=== PATIENT | female | born 1940 | race Caucasian/White ===

== ENCOUNTER 2016-11-02 20:55 | Observation (INO) | payer MEDICARE, MEDICAID ==
--- NOTE | 2016-11-02 21:27 | C.PDOC ---
History Of Present Illness 76 yo female, no prior hx, presents with back pain. as per pt, has left flank pain x 2 weeks, getting worse, now with nausea/vomiting. pain radiatings down left leg. also c/o left eg pain and swelling. no diarrhea, no fevers, no other complaints. Time Seen by Provider: 11/02/16 21:12 Chief Complaint (Nursing): Back Pain Past Medical History Reviewed: Historical Data, Nursing Documentation, Vital Signs Vital Signs: Last Vital Signs Temp 97.5 F L 11/02/16 21:06 Pulse 71 11/03/16 00:08 Resp 16 11/03/16 00:08 BP 138/71 11/03/16 00:08 Pulse Ox 97 11/03/16 00:08 Surgical History: Cholecystectomy Family History: States: Unknown Family Hx - Social History Hx Tobacco Use: No Hx Alcohol Use: No Hx Substance Use: No - Immunization History Hx Tetanus Toxoid Vaccination: No Hx Influenza Vaccination: No Hx Pneumococcal Vaccination: No Review Of Systems Except As Marked, All Systems Reviewed And Found Negative. Gastrointestinal: Positive for: Other ((+)left flank pain) Physical Exam - Physical Exam Appears: Well, No Acute Distress Skin: Normal Color, Warm, Dry Eye(s): bilateral: Normal Inspection, PERRL, EOMI Nose: Normal Throat: Normal Neck: Normal Cardiovascular: Rhythm Regular Respiratory: Normal Breath Sounds Gastrointestinal/Abdominal: Normal Exam, Soft, Tenderness ((+)left flank pain), No Guarding, No Rebound Back: Normal Inspection Extremity: Normal ROM ED Course And Treatment - Laboratory Results Result Diagrams: 11/02/16 21:39 11/02/16 21:39 O2 Sat by Pulse Oximetry: 98 Medical Decision Making Medical Decision Making: r/o uti/pyelo, renal stone, sciaticia, dvt. - labs imaging pending 1200: pt reassese: mildly elevated dimer. case discussed with mohinder roque obs to r/o dvt Disposition - Disposition Disposition: HOSPITALIZED Disposition Time: 00:04 Condition: STABLE - Clinical Impression Clinical Impression: Leg swelling, Low back pain Decision To Admit - Pt Status Changed To: Hospital Disposition Of: Observation - . Bed Request Type: Regular Admitting Physician: Dario Huff Patient Diagnosis: Leg swelling, Low back pain
[2016-11-02 21:42] LABS: BASO % 0.6 % (0.0-2.0); EOS # 0.3 K/uL (0.0-0.7); HEMATOCRIT 40.8 % (34.0-47.0); LYMPH # 2.7 K/uL (1.0-4.3); LYMPH % 46.8 % (20.0-40.0); MEAN CELL VOLUME 78.7 fL (81.0-99.0); MEAN CORPUSCULAR HEMOGLOBIN 25.5 pg (27.0-31.0); MEAN CORPUSCULAR HGB CONC 32.4 g/dL (33.0-37.0); MEAN PLATELET VOLUME 7.8 fL (7.2-11.7); MONO # 0.6 K/uL (0.0-0.8); MONO % 10.7 % (0.0-10.0); RED CELL DISTRIBUTION WIDTH 14.6 % (11.5-14.5); WHITE BLOOD COUNT 5.9 K/uL (4.8-10.8)
[2016-11-02 21:50] LABS: INR 1.1
[2016-11-02 21:51] LABS: RBC URINE 1 /hpf (0-3); URINE BILIRUBIN NEGATIVE (NEGATIVE); URINE BLOOD NEGATIVE (NEGATIVE); URINE COLOR Yellow (YELLOW); URINE GLUCOSE (UA) NORMAL (Normal); URINE KETONE NEGATIVE (NEGATIVE); URINE LEUKOCYTE ESTERASE TRACE Leu/uL (Negative); URINE PROTEIN NEGATIVE (NEGATIVE); URINE UROBILINOGEN NORMAL mg/dL (0.2-1.0); WBC URINE 6 /hpf (0-5)
[2016-11-02 21:52] LABS: CHLORIDE 106 mmol/L (98-107); POTASSIUM 3.8 mmol/L (3.6-5.2); SODIUM 144 mmol/L (132-148)
[2016-11-02 21:54] LABS: AST/SGOT 46 U/L (14-36); BILIRUBIN,TOTAL 0.4 mg/dL (0.2-1.3); CARBON DIOXIDE 23 mmol/L (22-30); GFR AFRICAN-AMERICAN > 60
[2016-11-02 21:55] LABS: ALB/GLOB RATIO 0.9 (1.0-2.1); ALKALINE PHOSPHATASE 110 U/L (38-126); ALT/SGPT 42 U/L (9-52); BLOOD UREA NITROGEN 12 mg/dL (7-17); CALCIUM 8.9 mg/dl (8.6-10.4); GLUCOSE,RANDOM 83 mg/dL (65-105)
--- NOTE | 2016-11-02 23:14 | CT ---
EXAM: CT Abdomen and Pelvis Without Intravenous Contrast CLINICAL HISTORY: 76 years old, female; Pain; Abdominal pain; Localized; Left; Additional info: Abd pain TECHNIQUE: Axial computed tomography images of the abdomen and pelvis without intravenous contrast. This CT exam was performed using one or more of the following dose reduction techniques: automated exposure control, adjustment of the mA and/or kV according to patient size, and/or use of iterative reconstruction technique. Coronal and sagittal reformatted images were created and reviewed. COMPARISON: No relevant prior studies available. FINDINGS: Lower thorax: Small hiatal hernia. ABDOMEN: Liver: Unremarkable. Gallbladder and bile ducts: Cholecystectomy. No ductal dilation. Pancreas: Unremarkable. No ductal dilation. Spleen: Unremarkable. No splenomegaly. Adrenals: Unremarkable. No mass. Kidneys and ureters: Unremarkable. No obstructing stones. No hydronephrosis. Stomach and bowel: Colonic diverticulosis. Appendix: No findings to suggest acute appendicitis. PELVIS: Bladder: Unremarkable. No stones. Reproductive: 2 CM uterine fundal fibroid. ABDOMEN and PELVIS: Intraperitoneal space: Unremarkable. No free air. No significant fluid collection. Bones/joints: Spinal degenerative changes. No acute fracture. No dislocation. Soft tissues: Unremarkable. Vasculature: Atherosclerotic vascular disease. No abdominal aortic aneurysm. Lymph nodes: Unremarkable. No enlarged lymph nodes. IMPRESSION: 1. Diverticulosis, without evidence of acute diverticulitis. 2. Myomatous uterus. 3. Remainder of findings as above.
[2016-11-03] MEDS ORDERED: Enoxaparin 80 mg Syringe SC STA (00:01)
[2016-11-03] MEDS ORDERED: Enoxaparin 100 mg Syringe SC STA (00:14)
[2016-11-03] MEDS ORDERED: Oxycodone/Acetaminophen 5/325 mg Tab PO PRN (00:15)
[2016-11-03 01:41] VITALS: RESP 20
[2016-11-03] MEDS ORDERED: Enoxaparin 80 mg Syringe SC SCH (10:00)
[2016-11-03] MEDS: Enoxaparin 100 mg Syringe SC SCH (21:43)
--- NOTE | 2016-11-04 01:55 | HP ---
HISTORY OF PRESENT ILLNESS: The patient is now complaining of back pain *------*. The patient came to the ER *------* admission, found to have elevated D-dimer. The patient is *------* on the bed. PHYSICAL EXAMINATION GENERAL: The patient is awake, alert, and oriented. VITAL SIGNS: Temperature 98, pulse 90. HEENT: Within normal limits. NECK: Supple. CHEST: Symmetrical. HEART: Regular. ABDOMEN: *------*. EXTREMITIES: *------*. No edema. Positive for straight leg raising. *------* lumbar radiculopathy and DVT. The patient *------* MRI of lumbar spine. *------*. Dario Huff MD
[2016-11-04] MEDS: Enoxaparin 100 mg Syringe SC SCH ×2 (10:22→21:23)
[2016-11-04 11:57] LABS: EOS # 0.3 K/uL (0.0-0.7); EOS % 6.9 % (0.0-4.0); HEMATOCRIT 40.7 % (34.0-47.0); LYMPH # 2.3 K/uL (1.0-4.3); LYMPH % 51.4 % (20.0-40.0); MEAN CELL VOLUME 79.2 fL (81.0-99.0); MEAN CORPUSCULAR HEMOGLOBIN 25.1 pg (27.0-31.0); MEAN CORPUSCULAR HGB CONC 31.6 g/dL (33.0-37.0); MEAN PLATELET VOLUME 8.7 fL (7.2-11.7); MONO # 0.6 K/uL (0.0-0.8); NRBC % 0.1 % (0.0-2.0); WHITE BLOOD COUNT 4.5 K/uL (4.8-10.8)
[2016-11-04 12:02] LABS: INR 1.1
[2016-11-04 12:19] LABS: CHLORIDE 105 mmol/L (98-107)
[2016-11-04 12:20] LABS: POTASSIUM 4.1 mmol/L (3.6-5.2); SODIUM 143 mmol/L (132-148)
[2016-11-04 12:21] LABS: GFR AFRICAN-AMERICAN > 60
[2016-11-04 12:22] LABS: ALB/GLOB RATIO 0.9 (1.0-2.1); ALKALINE PHOSPHATASE 89 U/L (38-126); ALT/SGPT 43 U/L (9-52); AST/SGOT 44 U/L (14-36); BILIRUBIN,TOTAL 0.4 mg/dL (0.2-1.3); BLOOD UREA NITROGEN 13 mg/dL (7-17); CARBON DIOXIDE 24 mmol/L (22-30); GLUCOSE,RANDOM 85 mg/dL (65-105); TOTAL PROTEIN 7.4 g/dL (6.3-8.3)
[2016-11-04 12:23] LABS: CALCIUM 8.9 mg/dl (8.6-10.4)
--- NOTE | 2016-11-04 13:12 | MRI ---
PROCEDURE: MR LUMBAR SPINE WITHOUT CONTRAST HISTORY: back pain COMPARISON: None available. TECHNIQUE: Multiecho multiplanar sequences were performed through the lumbar spine without the use of intravenous contrast. FINDINGS: Mildly exaggerated lumbar lordosis. Vertebral body heights are preserved. Marrow signal unremarkable. Diffuse disc desiccation appreciated though heights are well-preserved. Conus medullaris unremarkable at the level of L1 Paraspinal soft tissues are unremarkable. T12-L1: No disc herniation, spinal canal stenosis or neural foraminal narrowing. L1-2: No disc herniation, spinal canal stenosis or neural foraminal narrowing. L2-3: A generalized disc bulge is encountered encroach the lateral recesses somewhat, but without causing significant central canal stenosis. No disc herniation, or neural foraminal narrowing. Mild to moderate degenerative facet joint changes are encountered. L3-4: A generalized disc bulge is appreciated combined with facet arthropathy cause mild central canal stenosis, concentrated at the lateral recesses. Mild bilateral neural foraminal stenosis is encountered. L4-5: A mild generalized disc bulge is encountered without disc herniation identified. However, facet arthropathy appears moderate to severe with both these degenerative features resulting in severe bilateral neural foraminal stenosis and a moderate central canal stenosis. L5-S1: There is no disc herniation at this level however, [id number] facet arthropathy combines with borderline disc bulging results in moderate bilateral neural foraminal stenosis. No significant central canal stenosis. OTHER FINDINGS: None. IMPRESSION: 1. No definite acute disc herniation identified. 2. A moderate central stenosis appears degenerative L4-5 with severe bilateral degenerative neural foraminal stenoses identified at L4-5. 3. Additional lesser spinal stenosis at the mid to upper lumbar spine as per above.
--- NOTE | 2016-11-04 13:38 | CP.PCM.PN ---
Subjective - Date & Time of Evaluation Date of Evaluation: 11/04/16 Time of Evaluation: 13:35 - Subjective Subjective: PGY [address] Huff 76 year old female with past medical history of diverticulosis and low back pain presented to hospital for lumbar back pain and left lower leg pain. Patient continues to complain of low back pain. She states that at some point she had imaging of low back done with PMD which showed Spinal stenosis. Patient denies having any urinary or bowel incontinence or any saddle parasthesias. Patient states she is able to ambulate without difficulty. patient denies having any F/C, CP, SOB, abd pain, N/V/d/c. 12 point ROS are negative except for the above mentioned. Objective - Vital Signs/Intake and Output Vital Signs (last 24 hours): Temp Pulse Resp BP Pulse Ox 98.1 F 74 20 99/64 L 97 11/04/16 08:42 11/04/16 08:42 11/04/16 08:42 11/04/16 08:42 11/04/16 08:42 Intake and Output: 11/04/16 11/04/16 06:59 18:59 Intake Total 300 Balance 300 - Medications Medications: Current Medications Enoxaparin Sodium (Lovenox) 90 mg SC Q12 [facility] Last Admin: 11/04/16 10:22 Dose: 90 mg Oxycodone/Acetaminophen (Percocet 5/325 Mg Tab) 1 tab PO Q4 PRN PRN Reason: pain Stop: 11/06/16 00:16 Pneumococcal Polyvalent Vaccine (Pneumovax 23 Vaccine) 0.5 ml IM .ONCE ONE Stop: 11/05/16 10:01 - Labs Labs: 11/04/16 11:38 11/04/16 11:38 PT 12.9 SECONDS (9.7-12.2) H 11/04/16 11:38 INR 1.1 11/04/16 11:38 APTT 36 SECONDS (21-34) H D 11/04/16 11:38 - Constitutional Appears: Non-toxic, No Acute Distress - Head Exam Head Exam: ATRAUMATIC - Eye Exam Eye Exam: EOMI - ENT Exam ENT Exam: Mucous Membranes Moist - Respiratory Exam Respiratory Exam: Clear to Ausculation Bilateral. absent: Accessory Muscle Use , Rales, Rhonchi, Wheezes, Respiratory Distress - Cardiovascular Exam Cardiovascular Exam: REGULAR RHYTHM, +S1, +S2. absent: Gallop, Rubs, Murmur - GI/Abdominal Exam GI & Abdominal Exam: Soft, Normal Bowel Sounds. absent: Firm, Guarding, Rigid, Tenderness, Organomegaly - Extremities Exam Extremities Exam: absent: Pedal Edema, Tenderness - Neurological Exam Neurological Exam: Alert, Awake, Oriented x3 - Psychiatric Exam Psychiatric exam: Normal Affect, Normal Mood - Skin Skin Exam: Dry, Intact, Normal Color, Warm Assessment and Plan - Assessment and Plan (Free Text) Assessment: 76 year old female with past medical history of low back pain and diverticulosis is admitted for low back pain and left LE pain. Lower back pain and flank pain with radiation to left lower extremity - MRI of lumbar psine shows no acute disc herniation; a moderate central stenosis appears degerative L4-L5 with severe bilateral degenerative neural foraminal stenosis identified at L4-L5 - LE duplex US prelim report is negative for DVT - Physical therapy consulted - UA showed trace LE, 5 WBC, 4 squam epithelial cells - CT abd pelvis on admission showed diverticulosis without diverticulitis, myomatous uterus - Pain management with percocet 1 tab po q4 Prophylaxis - lovenox - pepcid Orders and management per Dr. Huff
[2016-11-05 08:43] VITALS: BP 135/80; PULSE 75; TEMP 98; O2SAT 95
[2016-11-05] MEDS ORDERED: Pneumococcal 23-Valent Vaccine IM ONE (10:00)
[2016-11-05] MEDS: Enoxaparin 100 mg Syringe SC SCH (10:19)
--- NOTE | 2016-11-05 13:32 | CP.PCM.PN ---
Subjective - Date & Time of Evaluation Date of Evaluation: 11/05/16 Time of Evaluation: 09:05 - Subjective Subjective: PGY [address] Huff Patient seen and examined at bedside this AM. Patient reports lower back pain improved. Patient denies having any urinary or bowel incontinence or any saddle paresthesias. Patient states she is able to ambulate without difficulty but sometimes uses a cane at home. Patient denies having any F/C, CP, SOB, abd pain, N/V/d/c. 12 point ROS are negative except for the above mentioned. Objective - Vital Signs/Intake and Output Vital Signs (last 24 hours): Temp Pulse Resp BP Pulse Ox 98 F 75 20 135/80 95 11/05/16 08:42 11/05/16 12:15 11/05/16 08:42 11/05/16 12:15 11/05/16 12:15 Intake and Output: 11/05/16 11/05/16 06:59 18:59 Intake Total 0 Balance 0 - Medications Medications: Current Medications Enoxaparin Sodium (Lovenox) 90 mg SC Q12 [facility] Last Admin: 11/05/16 10:19 Dose: 90 mg Famotidine (Pepcid) 20 mg PO DAILY [facility] Last Admin: 11/05/16 10:18 Dose: 20 mg Oxycodone/Acetaminophen (Percocet 5/325 Mg Tab) 1 tab PO Q4 PRN PRN Reason: pain Stop: 11/06/16 00:16 - Labs Labs: 11/04/16 11:38 11/04/16 11:38 PT 12.9 SECONDS (9.7-12.2) H 11/04/16 11:38 INR 1.1 11/04/16 11:38 APTT 36 SECONDS (21-34) H D 11/04/16 11:38 - Constitutional Appears: Non-toxic, No Acute Distress - Head Exam Head Exam: NORMAL INSPECTION - Eye Exam Eye Exam: EOMI - ENT Exam ENT Exam: Mucous Membranes Moist - Respiratory Exam Respiratory Exam: Clear to Ausculation Bilateral, NORMAL BREATHING PATTERN. absent: Rales, Rhonchi, Wheezes - Cardiovascular Exam Cardiovascular Exam: REGULAR RHYTHM, +S1, +S2. absent: Gallop, Rubs, Murmur - GI/Abdominal Exam GI & Abdominal Exam: Soft, Normal Bowel Sounds. absent: Guarding, Tenderness - Extremities Exam Extremities Exam: absent: Pedal Edema - Neurological Exam Neurological Exam: Alert, Awake, Oriented x3 - Psychiatric Exam Psychiatric exam: Normal Affect, Normal Mood - Skin Skin Exam: Normal Color, Warm Assessment and Plan - Assessment and Plan (Free Text) Assessment: 76 year old female with past medical history of low back pain and diverticulosis is admitted for low back pain and left LE pain. Lumbar stenosis with radiculopathy - MRI of lumbar spine shows no acute disc herniation; a moderate central stenosis appears degerative L4-L5 with severe bilateral degenerative neural foraminal stenosis identified at L4-L5 - LE duplex US prelim report is negative for DVT - Physical therapy consulted - UA showed trace LE, 5 WBC, 4 squam epithelial cells - asymptomatic - CT abd pelvis on admission showed diverticulosis without diverticulitis, myomatous uterus - Pain management with percocet 1 tab po q4 Prophylaxis - lovenox - pepcid - PT recommends home or outpatient PT Orders and management per Dr. Huff Patient discharged today: Patient to be discharged home per Dr. Huff with home PT. Patient should take medications as directed below. Patient should make an appointment and follow up with Dr. Huff within one week. Patient should return to ED immediately if symptoms return and worsen. Medications: Medrol Dose Pack take as directed on packaging #1 pack Gabapentin 100mg by mouth twice a day #60 Pepcid 20mg by mouth daily #30
--- NOTE | 2016-11-05 14:06 | VASCLAB ---
PROCEDURE: Left Lower Extremity Venous Duplex Exam. HISTORY: Leg pain PRIORS: None. TECHNIQUE: Left common femoral, femoral, popliteal and posterior tibial, peroneal and great saphenous veins were evaluated. Flow was assessed with color Doppler, compressibility, assessment of phasic flow and augmentation response. Report prepared by ERMA Nicole, RVT FINDINGS: LEFT: 1. Common Femoral Vein: 1.1. Compressibility - Fully compressible: Thrombus - None : Flow - Phasic: Augmentation -Normal: Reflux - None. 2. Femoral Vein: 2.1. Compressibility - Fully compressible: Thrombus - None: Flow - Phasic: Augmentation -Normal: Reflux - None. 3. Popliteal Vein: 3.1. Compressibility - Fully compressible: Thrombus - None: Flow - Phasic: Augmentation -Normal: Reflux - None. 4. Posterior Tibial Vein: 4.1. Compressibility - Fully compressible: Thrombus - None: Flow - Phasic: Augmentation -Normal: Reflux - None. 5. Peroneal Vein: 5.1. Compressibility - Fully compressible: Thrombus - None: Flow - Phasic: Augmentation -Normal: Reflux - None. 6. Great Saphenous Vein: 6.1. Compressibility - Fully compressible: Thrombus - None: Flow - Phasic: Augmentation - Normal: Reflux - None. OTHER FINDINGS: IMPRESSION: No evidence of deep or superficial vein thrombosis of the left lower extremity with excellent venous flow. Normal valve function noted of the left side. Normal venous flow noted in the right common femoral vein.
== END 2016-11-05 16:20 | disposition home or self-care (01) ==
LOC: C.ER 20:55 → C.9E 11-03 00:04 → C.3T 11-03 00:33
PROVIDERS: ADMIT Internal Medicine Pulmonary Disease; ATTEND Internal Medicine Pulmonary Disease
DX: M48.06 Spinal stenosis, lumbar region (principal); M54.16 Radiculopathy, lumbar region; K57.90 Diverticulosis of intestine, part unspecified, without perforation or abscess without bleeding
CPT/HCPCS: 36415; 72148; 74176; 80053; 81001; 83690; 85025; 85378; 85610; 85730; 93971; 96372; 96374; 96375; 97116; 97161; 97530; 99284; G0378; G8978; G8979; J1650; J1885; J2405

== ENCOUNTER 2018-04-04 14:47 | Inpatient (IN) | payer MEDICARE, MEDICAID ==
--- NOTE | 2018-04-04 15:13 | C.PDOC ---
History Of Present Illness 77 y/o female with no PMHx brought in by EMS for evaluation s/p fall just prior to arrival. While walking to her garage patient slipped and fell, landing on her right side. She is now complaining of right hip pain and right thigh pain. She denies any chest pain, SOB, headaches, head trauma, LOC, dizziness, numbness, or tingling. - HPI Time Seen by Provider: 04/04/18 14:59 Chief Complaint (Nursing): Trauma History Per: Patient History/Exam Limitations: no limitations Onset/Duration Of Symptoms: Mins Injury Occurred (Timing): Just Before Arrival Location Of Injury: Right: Hip Past Medical History Reviewed: Historical Data, Nursing Documentation, Vital Signs Vital Signs: Last Vital Signs Temp 98 F 04/04/18 14:57 Pulse 89 04/04/18 14:57 Resp 18 04/04/18 14:57 BP 156/79 H 04/04/18 14:57 Pulse Ox 98 04/04/18 14:57 - Medical History PMH: Arthritis (BACK; L KNEE) Denies: Chronic Kidney Disease Surgical History: Cholecystectomy Family History: States: Unknown Family Hx - Social History Hx Tobacco Use: No Hx Alcohol Use: No Hx Substance Use: No - Immunization History Hx Tetanus Toxoid Vaccination: No Hx Influenza Vaccination: No Hx Pneumococcal Vaccination: No Review Of Systems Except As Marked, All Systems Reviewed And Found Negative. Constitutional: Negative for: Fever Eyes: Negative for: Vision Change Cardiovascular: Negative for: Chest Pain, Palpitations Respiratory: Negative for: Shortness of Breath Gastrointestinal: Negative for: Nausea, Vomiting, Abdominal Pain Musculoskeletal: Positive for: Leg Pain (right hip/mid thigh), Other (Difficulty ranging RLE secondary to pain). Negative for: Back Pain Skin: Negative for: Lesions Neurological: Negative for: Weakness, Numbness, Headache, Dizziness Physical Exam - Physical Exam Appears: Non-toxic, No Acute Distress Skin: Normal Color, Warm, Dry Head: Atraumatic, Normacephalic Eye(s): bilateral: Normal Inspection, PERRL, EOMI Oral Mucosa: Moist Neck: Normal ROM Chest: Symmetrical Cardiovascular: Rhythm Regular, No JVD Respiratory: Normal Breath Sounds, No Rales, No Rhonchi, No Wheezing Gastrointestinal/Abdominal: Soft, No Tenderness, No Distention Extremity: Tenderness (over the right hip and right mid thigh), No Swelling, Other (Able to move her left leg and bilateral upper extremities; unable to move the right lower extremity secondary to pain) Pulses: Left Dorsalis Pedis: Normal, Right Dorsalis Pedis: Normal Neurological/Psych: Oriented x3, Normal Speech, Normal Cranial Nerves, Normal Sensation ED Course And Treatment - Laboratory Results Result Diagrams: 04/06/18 07:30 04/06/18 07:30 O2 Sat by Pulse Oximetry: 98 (RA) Pulse Ox Interpretation: Normal Medical Decision Making Medical Decision Making: Impression: s/p Fall, r/o hip fracture Plan: -Labs -Chest x-ray -Right knee x-ray -Right hip/pelvis x-ray -Right femur x-ray -Tylenol 975 mg PO -Morphine 4 mg IVP Progress: Chest x-ray: Left basilar linear scar/atelectasis. Otherwise unremarkable. Right knee x-ray: Normal radiographs of the right knee. Pelvic x-ray: Comminuted displaced intertrochanteric fracture of the right hip. Femur x-ray: Comminuted displaced intertrochanteric fracture of the right hip. Imaging reviewed and discussed with patient. 16:[address] Huff to discuss admission. Dr. Huff is out, hospitalist service covering. 16:28 Case discussed with orthopedist, Dr. Steven, who will take patient to the OR tomorrow. Pre-op EKG ordered. EKG: NSR at 71 bpm Normal axis 16:50 Discussed case with hospitalist, Dr. Field, who accepts patient for a dmission. Disposition Counseled Patient/Family Regarding: Studies Performed, Diagnosis - Disposition Disposition: HOSPITALIZED Disposition Time: 16:52 Condition: GOOD - Clinical Impression Clinical Impression: Hip fracture, Fall - Scribe Statement The provider has reviewed the documentation as recorded by the Zhang Patel Provider Attestation: All medical record entries made by the Zhang were at my direction and personally dictated by me. I have reviewed the chart and agree that the record accurately reflects my personal performance of the history, physical exam, medical decision making, and the department course for this patient. I have also personally directed, reviewed, and agree with the discharge instructions and disposition.
[2018-04-04 15:47] LABS: BASO % 0.7 % (0.0-2.0); EOS # 0.2 K/uL (0.0-0.7); EOS % 4.7 % (0.0-4.0); HEMOGLOBIN 13.6 g/dL (11.0-16.0); LYMPH # 2.3 K/uL (1.0-4.3); LYMPH % 47.1 % (20.0-40.0); MEAN CELL VOLUME 80.2 fL (81.0-99.0); MEAN CORPUSCULAR HEMOGLOBIN 25.8 pg (27.0-31.0); MEAN CORPUSCULAR HGB CONC 32.1 g/dL (33.0-37.0); MEAN PLATELET VOLUME 8.1 fL (7.2-11.7); MONO # 0.6 K/uL (0.0-0.8); MONO % 11.5 % (0.0-10.0); NEUT # 1.7 K/uL (1.8-7.0); RBC 5.28 Mil/uL (3.80-5.20); RED CELL DISTRIBUTION WIDTH 15.2 % (11.5-14.5); WHITE BLOOD COUNT 4.8 K/uL (4.8-10.8)
[2018-04-04] MEDS ORDERED: Morphine 4 MG/ML VIAL ONE (15:47)
[2018-04-04 15:55] LABS: INR 1.2; PROTHROMBIN TIME 13.1 SECONDS (9.7-12.2)
[2018-04-04 15:58] LABS: ALBUMIN 4.2 g/dL (3.5-5.0); ALT/SGPT 37 U/L (9-52); AST/SGOT 49 U/L (14-36); BLOOD UREA NITROGEN 12 mg/dL (7-17); CALCIUM 9.3 mg/dl (8.6-10.4); GFR NON-AFRICAN AMERICAN > 60
--- NOTE | 2018-04-04 16:01 | RAD ---
PROCEDURE: Right Hip Radiographs. HISTORY: s/p fall COMPARISON: None. FINDINGS: BONES: Comminuted displaced intertrochanteric fracture of the right hip with mild varus angulation. No other fracture identified. JOINTS: Normal. SOFT TISSUES: Normal. OTHER FINDINGS: None. IMPRESSION: Comminuted displaced intertrochanteric fracture of the right hip.
--- NOTE | 2018-04-04 16:02 | RAD ---
Date of service: 04/04/2018 PROCEDURE: Right Knee Radiographs. HISTORY: s/p fall COMPARISON: None. FINDINGS: BONES: Normal. No fracture. JOINTS: Normal. No osteoarthritis. JOINT EFFUSION: None. OTHER FINDINGS: None. IMPRESSION: Normal radiographs of the right knee.
--- NOTE | 2018-04-04 16:02 | RAD ---
Date of service: 04/04/2018 PROCEDURE: Right Femur Radiographs. HISTORY: s/p fall COMPARISON: None. TECHNIQUE: AP and Lateral Radiographs of the right femur. FINDINGS: FEMUR: Comminuted intertrochanteric fracture of the right hip. Mildly displaced. SOFT TISSUES: Normal. OTHER FINDINGS: None. IMPRESSION: Comminuted displaced intertrochanteric fracture of the right hip.
--- NOTE | 2018-04-04 16:06 | RAD ---
Date of service: 04/04/2018 PROCEDURE: CHEST RADIOGRAPH, 1 VIEW HISTORY: s/p fall COMPARISON: 11/04/2015 FINDINGS: LUNGS: Linear scar/atelectasis at left base. No acute infiltrate. PLEURA: No pneumothorax or pleural fluid seen. CARDIOVASCULAR: No aortic atherosclerotic calcification present. Normal. OSSEOUS STRUCTURES: No significant abnormalities. VISUALIZED UPPER ABDOMEN: Normal. OTHER FINDINGS: None. IMPRESSION: Left basilar linear scar/atelectasis. Otherwise unremarkable.
--- NOTE | 2018-04-04 17:27 | CP.PCM.HP ---
<EnzoGennaro holland - Last Filed: 04/04/18 18:17> History of Present Illness - History of Present Illness History of Present Illness: PGY-1 Medicine History and Physical for Dr. Field Patient is a 77 year old [place] female with past medical history of spinal stenosis, arthritis, diverticulosis presenting with R hip fracture s/p mechanical fall earlier today. Per patient, she was getting out of her car and walking towards the garage when she slipped and fell on her R side. She denies any LOC or head trauma. She endorses R hip and thigh pain, rated 10/10 in severity, with no radiation of pain. She denies any numbness or tingling sensation to her extremities, no saddle anesthesia, no urinary incontinence. No other acute somatic complaints at this time. No fevers/chills, headaches, dizziness, chest pain, palpitations, sob, cough, abdominal pain, +mild nausea s/p morphine, no vomiting/diarrhea/constipation. PMHx: spinal stenosis, arthritis, diverticulosis PSHx: cholecystectomy Allergies: NKDA Home Medications: denies Family Hx: noncontributory Social Hx: denies alcohol, tobacco, illicit drug use PMD: Dr. Huff Present on Admission - Present on Admission Any Indicators Present on Admission: No Review of Systems - Review of Systems All systems: reviewed and no additional remarkable complaints except Review of Systems: as per HPI Past Patient History - Past Medical History & Family History Past Medical History?: Yes - Past Social History Smoking Status: Never Smoked - CARDIAC Hx Cardiac Disorders: No - PULMONARY Hx Respiratory Disorders: No - NEUROLOGICAL Hx Neurological Disorder: No - HEENT Other/Comment: uses eyglasses - RENAL Hx Chronic Kidney Disease: No - ENDOCRINE/METABOLIC Hx Endocrine Disorders: No - HEMATOLOGICAL/ONCOLOGICAL Hx Blood Disorders: No - INTEGUMENTARY Hx Dermatological Problems: No - MUSCULOSKELETAL/RHEUMATOLOGICAL Hx Arthritis: Yes (BACK; L KNEE) - GASTROINTESTINAL Hx Gastrointestinal Disorders: No - GENITOURINARY/GYNECOLOGICAL Hx Genitourinary Disorders: No - PSYCHIATRIC Hx Substance Use: No - SURGICAL HISTORY Hx Cholecystectomy: Yes - ANESTHESIA Hx Anesthesia: Yes Hx Anesthesia Reactions: No Hx Malignant Hyperthermia: No Meds Allergies/Adverse Reactions: Allergies Allergy/AdvReac Type Severity Reaction Status Date / Time No Known Allergies Allergy Verified 11/02/16 21:11 Physical Exam - Constitutional Appears: Non-toxic, In Acute Distress - Head Exam Head Exam: ATRAUMATIC, NORMAL INSPECTION, NORMOCEPHALIC - Eye Exam Eye Exam: EOMI, Normal appearance, PERRL Pupil Exam: NORMAL ACCOMODATION - ENT Exam ENT Exam: Mucous Membranes Moist, Normal Exam - Neck Exam Neck exam: Positive for: Full Rom, Normal Inspection - Respiratory Exam Respiratory Exam: Clear to Auscultation Bilateral, NORMAL BREATHING PATTERN. absent: Accessory Muscle Use, Rales, Rhonchi, Wheezes, Respiratory Distress, Stridor - Cardiovascular Exam Cardiovascular Exam: REGULAR RHYTHM, +S1, +S2 - GI/Abdominal Exam GI & Abdominal Exam: Normal Bowel Sounds, Soft. absent: Distended, Firm, Guarding, Rebound, Rigid, Tenderness - Extremities Exam Extremities exam: Positive for: normal capillary refill, tenderness (TTP along R hip joint, anterior thigh), pedal pulses present. Negative for: calf tenderness, pedal edema - Neurological Exam Neurological exam: Alert, Oriented x3 - Psychiatric Exam Psychiatric exam: Normal Affect, Normal Mood - Skin Skin Exam: Dry, Intact, Normal Color, Warm Results - Vital Signs Recent Vital Signs: Last Vital Signs Temp 97.8 F 04/04/18 17:00 Pulse 69 04/04/18 17:00 Resp 20 04/04/18 17:00 BP 153/76 H 04/04/18 17:00 Pulse Ox 98 04/04/18 17:02 - Labs Result Diagrams: 04/04/18 15:43 04/04/18 15:43 Labs: Laboratory Results - last 24 hr 04/04/18 04/04/18 04/04/18 15:43 15:43 15:43 WBC 4.8 RBC 5.28 H Hgb 13.6 Hct 42.4 MCV 80.2 L MCH 25.8 L MCHC 32.1 L RDW 15.2 H Plt Count 211 MPV 8.1 Neut % (Auto) 36.0 L Lymph % (Auto) 47.1 H [place] % (Auto) 11.5 H Eos % (Auto) 4.7 H Baso % (Auto) 0.7 Neut # (Auto) 1.7 L Lymph # (Auto) 2.3 [place] # (Auto) 0.6 Eos # (Auto) 0.2 Baso # (Auto) 0.0 PT 13.1 H INR 1.2 APTT 32 Sodium 142 Potassium 4.7 Chloride 105 Carbon Dioxide 26 Anion Gap 15 BUN 12 Creatinine 0.7 Est GFR ( Amer) > 60 Est GFR (Non-Af Amer) > 60 Random Glucose 124 H D Calcium 9.3 Total Bilirubin 0.5 AST 49 H ALT 37 Alkaline Phosphatase 111 Total Protein 8.5 H Albumin 4.2 Globulin 4.4 H Albumin/Globulin Ratio 1.0 Blood Type Antibody Screen 04/04/18 15:43 WBC RBC Hgb Hct MCV MCH MCHC RDW Plt Count MPV Neut % (Auto) Lymph % (Auto) [place] % (Auto) Eos % (Auto) Baso % (Auto) Neut # (Auto) Lymph # (Auto) [place] # (Auto) Eos # (Auto) Baso # (Auto) PT INR APTT Sodium Potassium Chloride Carbon Dioxide Anion Gap BUN Creatinine Est GFR ( Amer) Est GFR (Non-Af Amer) Random Glucose Calcium Total Bilirubin AST ALT Alkaline Phosphatase Total Protein Albumin Globulin Albumin/Globulin Ratio Blood Type B POSITIVE Antibody Screen Negative Assessment & Plan - Assessment and Plan (Free Text) Assessment: 77 year old [place] female with PMHx of spinal stenosis, arthritis, diverticulosis admitted for R hip fracture 2/2 mechanical fall. Scheduled for OR tomorrow. Plan: R hip fracture 2/2 mechanical fall -CXR (04/04): L basilar linear scar/atelectasis; otherwise, no acute findings -XR femur (04/04): comminuted mildly displaced intertrochanteric fracture of R hip -XR hip/pelvis (04/04): comminuted mildly displaced intertrochanteric fracture of R hip -R knee XR (04/04): no acute findings -Orthopedic Surgery (Dr. Steven) on board -patient scheduled for OR tomorrow -Patient received 975 mg tylenol, 4 mg morphine, 30 mg toradol in ED -Morphine 2mg IVP q4 prn -Toradol 30 mg IV q6 prn PPx, Diet, Disposition -DVT ppx: scds -GI ppx: protonix 40 mg -Diet: NPO after midnight -Dispo: scheduled for OR tomorrow Case discussed with Dr. Rashida Alanis DO, PGY-1 <Josemanuel Field - Last Filed: 04/04/18 19:10> Results - Vital Signs Recent Vital Signs: Last Vital Signs Temp 97.8 F 04/04/18 17:00 Pulse 69 04/04/18 17:00 Resp 20 04/04/18 17:00 BP 153/76 H 04/04/18 17:00 Pulse Ox 98 04/04/18 17:30 - Labs Result Diagrams: 04/04/18 15:43 04/04/18 15:43 Labs: Laboratory Results - last 24 hr 04/04/18 04/04/18 04/04/18 15:43 15:43 15:43 WBC 4.8 RBC 5.28 H Hgb 13.6 Hct 42.4 MCV 80.2 L MCH 25.8 L MCHC 32.1 L RDW 15.2 H Plt Count 211 MPV 8.1 Neut % (Auto) 36.0 L Lymph % (Auto) 47.1 H [place] % (Auto) 11.5 H Eos % (Auto) 4.7 H Baso % (Auto) 0.7 Neut # (Auto) 1.7 L Lymph # (Auto) 2.3 [place] # (Auto) 0.6 Eos # (Auto) 0.2 Baso # (Auto) 0.0 PT 13.1 H INR 1.2 APTT 32 Sodium 142 Potassium 4.7 Chloride 105 Carbon Dioxide 26 Anion Gap 15 BUN 12 Creatinine 0.7 Est GFR ( Amer) > 60 Est GFR (Non-Af Amer) > 60 Random Glucose 124 H D Calcium 9.3 Total Bilirubin 0.5 AST 49 H ALT 37 Alkaline Phosphatase 111 Total Protein 8.5 H Albumin 4.2 Globulin 4.4 H Albumin/Globulin Ratio 1.0 Blood Type Antibody Screen 04/04/18 15:43 WBC RBC Hgb Hct MCV MCH MCHC RDW Plt Count MPV Neut % (Auto) Lymph % (Auto) [place] % (Auto) Eos % (Auto) Baso % (Auto) Neut # (Auto) Lymph # (Auto) [place] # (Auto) Eos # (Auto) Baso # (Auto) PT INR APTT Sodium Potassium Chloride Carbon Dioxide Anion Gap BUN Creatinine Est GFR ( Amer) Est GFR (Non-Af Amer) Random Glucose Calcium Total Bilirubin AST ALT Alkaline Phosphatase Total Protein Albumin Globulin Albumin/Globulin Ratio Blood Type B POSITIVE Antibody Screen Negative Attending/Attestation - Attestation I have personally seen and examined this patient.: Yes I have fully participated in the care of the patient.: Yes I have reviewed all pertinent clinical information: Yes Notes (Text): Seen and examined by me. History taken from the patient. This is a 77 years old active healthy looking female with no significant medical problem came after a fall. She denies history of HTN ,no DM,not on meds and no hsitory of cardiac issues,Her echo in 2016 was normal.normal EKG,labs reviewed She denies recent cardiac issues. Patient is low cardiac risk patient for noncardiac surgery.Medically ok to go for hip surgery tomorrow Assessment and the paln discussed with the resident and I agree with the documentation
[2018-04-04] MEDS: Pantoprazole 40 mg EC Tab PO SCH (18:25)
[2018-04-05 08:21] LABS: BASO % 0.3 % (0.0-2.0); EOS # 0.1 K/uL (0.0-0.7); EOS % 1.5 % (0.0-4.0); HEMOGLOBIN 11.7 g/dL (11.0-16.0); LYMPH # 2.2 K/uL (1.0-4.3); LYMPH % 36.7 % (20.0-40.0); MEAN CELL VOLUME 79.7 fL (81.0-99.0); MEAN CORPUSCULAR HEMOGLOBIN 25.9 pg (27.0-31.0); MEAN CORPUSCULAR HGB CONC 32.5 g/dL (33.0-37.0); MEAN PLATELET VOLUME 8.6 fL (7.2-11.7); MONO # 0.8 K/uL (0.0-0.8); NEUT # 2.8 K/uL (1.8-7.0); NEUT % 47.5 % (50.0-75.0); RBC 4.51 Mil/uL (3.80-5.20); RED CELL DISTRIBUTION WIDTH 14.9 % (11.5-14.5); WHITE BLOOD COUNT 5.9 K/uL (4.8-10.8)
--- NOTE | 2018-04-05 08:25 | CP.PCM.PN ---
Subjective - Date & Time of Evaluation Date of Evaluation: 04/05/18 Time of Evaluation: 08:25 Objective - Vital Signs/Intake and Output Vital Signs (last 24 hours): Temp Pulse Resp BP Pulse Ox 98.0 F 79 20 142/77 94 L 04/05/18 07:00 04/05/18 07:00 04/05/18 07:00 04/05/18 07:00 04/05/18 07:00 Intake and Output: 04/05/18 04/05/18 06:59 18:59 Output Total 100 Balance -100 - Medications Medications: Current Medications Ketorolac Tromethamine (Toradol) 30 mg IVP Q6 PRN PRN Reason: Pain, severe (8-10) Morphine Sulfate (Morphine) 2 mg IVP Q4 PRN PRN Reason: Pain, moderate (4-7) Last Admin: 04/04/18 21:52 Dose: 2 mg Pantoprazole Sodium (Protonix Ec Tab) 40 mg PO DAILY JULIO Last Admin: 04/04/18 18:25 Dose: 40 mg - Labs Labs: 04/04/18 15:43 04/04/18 15:43 PT 13.1 SECONDS (9.7-12.2) H 04/04/18 15:43 INR 1.2 04/04/18 15:43 APTT 32 SECONDS (21-34) 04/04/18 15:43
[2018-04-05 08:32] LABS: ALB/GLOB RATIO 0.9 (1.0-2.1); ALBUMIN 3.2 g/dL (3.5-5.0); ALT/SGPT 55 U/L (9-52); AST/SGOT 77 U/L (14-36); BLOOD UREA NITROGEN 15 mg/dL (7-17); CALCIUM 8.7 mg/dl (8.6-10.4); GFR NON-AFRICAN AMERICAN > 60
[2018-04-05] MEDS: Pantoprazole 40 mg EC Tab PO SCH (09:04)
[2018-04-05] MEDS ORDERED: Midazolam 2 MG/2 ML VIAL ONE (09:54)
[2018-04-05] MEDS ORDERED: Propofol 10 mg/ml Inj (20 ML) ONE (09:54)
[2018-04-05] MEDS ORDERED: Rocuronium 10 mg/ml (5 ml) ONE (09:54)
[2018-04-05] MEDS ORDERED: ceFAZolin 1 gm in NS 2 GM/200 ML BAG IVPB ONE (10:21)
[2018-04-05] MEDS ORDERED: Bupivacaine 0.25% 20 ML INJ IJ ONE (10:21)
[2018-04-05] MEDS ORDERED: Phenylephrine 10 mg/ml Inj ONE (10:46)
--- NOTE | 2018-04-05 10:49 | CP.PCM.PN ---
Subjective - Date & Time of Evaluation Date of Evaluation: 04/05/18 Time of Evaluation: 09:30 - Subjective Subjective: Patient was seen with the medical residents Family members at bedside. Patient is not in any acute distress. Alert and orientated x 3. She reports still having the pain R hip area, controlled with the IV toradol and IV morphine. She reports the morphine does cause her some nausea Patient is pending OR later today for R hip FX I reviewed the lab work, CXRAY, and EKG and she is medical ok for surgery later this morning. Currently NPO at this time. Objective - Vital Signs/Intake and Output Vital Signs (last 24 hours): Temp Pulse Resp BP Pulse Ox 98.3 F 84 20 161/82 H 95 04/05/18 09:55 04/05/18 09:55 04/05/18 09:55 04/05/18 09:55 04/05/18 09:55 Intake and Output: 04/05/18 04/05/18 06:59 18:59 Output Total 100 Balance -100 - Medications Medications: Current Medications Ketorolac Tromethamine (Toradol) 30 mg IVP Q6 PRN PRN Reason: Pain, severe (8-10) Morphine Sulfate (Morphine) 2 mg IVP Q4 PRN PRN Reason: Pain, moderate (4-7) Last Admin: 04/04/18 21:52 Dose: 2 mg Pantoprazole Sodium (Protonix Ec Tab) 40 mg PO DAILY JULIO Last Admin: 04/05/18 09:04 Dose: Not Given - Labs Labs: 04/05/18 08:09 04/05/18 08:09 PT 13.1 SECONDS (9.7-12.2) H 04/04/18 15:43 INR 1.2 04/04/18 15:43 APTT 32 SECONDS (21-34) 04/04/18 15:43 - Constitutional Appears: No Acute Distress - Head Exam Head Exam: NORMAL INSPECTION, NORMOCEPHALIC - Eye Exam Eye Exam: EOMI, Normal appearance - ENT Exam ENT Exam: Mucous Membranes Moist - Respiratory Exam Respiratory Exam: Clear to Ausculation Bilateral, NORMAL BREATHING PATTERN - Cardiovascular Exam Cardiovascular Exam: REGULAR RHYTHM - GI/Abdominal Exam GI & Abdominal Exam: Soft, Normal Bowel Sounds. absent: Firm, Guarding, Rigid, Tenderness - Extremities Exam Extremities Exam: absent: Pedal Edema Additional comments: palpable pulses lower R extremity Warm feet and toes Sensation is intact - Neurological Exam Neurological Exam: Alert, Awake, Oriented x3 Neuro motor strength exam: Left Upper Extremity: 5, Right Upper Extremity: 5 Assessment and Plan - Assessment and Plan (Free Text) Assessment: 77 year old Chinese female with PMHx of spinal stenosis, arthritis, diverticulosis admitted for R hip fracture 2/2 mechanical fall. Currently at OR today 04/05/2018 Plan: R hip fracture 2/2 mechanical fall 04/05: Pending OR today. Will need PT OT eval after surgery. Monitor the CBC after surgery. At some point restart anticoagulation. Hgb is 11.7 this morning, repeat again tommorow and monitor CBC -CXR (04/04): L basilar linear scar/atelectasis; otherwise, no acute findings -XR femur (04/04): comminuted mildly displaced intertrochanteric fracture of R hip -XR hip/pelvis (04/04): comminuted mildly displaced intertrochanteric fracture of R hip -R knee XR (04/04): no acute findings -Orthopedic Surgery (Dr. Steven) on board -patient scheduled for OR tomorrow -Patient received 975 mg tylenol, 4 mg morphine, 30 mg toradol in ED -Morphine 2mg IVP q4 prn -Toradol 30 mg IV q6 prn PPx, Diet, Disposition -DVT ppx: scds -GI ppx: protonix 40 mg -Diet: NPO after midnight -Dispo: scheduled for OR tomorrow Case discussed with Dr. Rashida Alanis DO, PGY-1
[2018-04-05] MEDS ORDERED: Neostigmine Methylsulfate 3mg/3ml Syringe IV ONE (11:57)
[2018-04-05] MEDS ORDERED: Morphine 4 MG/ML VIAL ONE (11:58)
[2018-04-05] MEDS ORDERED: HYDROmorphone 0.5 mg/0.5 ml ISec IVP PRN (12:23)
--- NOTE | 2018-04-05 12:23 | PCM.SURG1 ---
Surgeon's Initial Post Op Note - Surgeon's Notes Surgeon: shey [employer] Analyst: Romulo Type of Anesthesia: General Endo Pre-Operative Diagnosis: R hip intertroch fx Operative Findings: see dictation Post-Operative Diagnosis: same Operation Performed: IM nail fixation Specimen/Specimens Removed: none Estimated Blood Loss: EBL {In ML}: 100 Date of Surgery/Procedure: 04/05/18 Time of Surgery/Procedure: 10:00
[2018-04-05] MEDS ORDERED: HYDROmorphone 0.5 mg/0.5 ml ISec ONE (12:48)
--- NOTE | 2018-04-05 13:35 | RAD ---
PROCEDURE: Right Hip Radiographs. HISTORY: post op COMPARISON: 04/04/2018 FINDINGS: BONES: Status post ORIF intertrochanteric right hip fracture. Fracture fragments are in near anatomic alignment. No additional fracture identified. JOINTS: Normal. SOFT TISSUES: Normal. OTHER FINDINGS: None. IMPRESSION: Status post ORIF right intertrochanteric hip fracture.
--- NOTE | 2018-04-05 23:29 | OP ---
PROCEDURE DATE: 04/05/2018 PREOPERATIVE DIAGNOSIS: Right displaced intertrochanteric hip fracture. POSTOPERATIVE DIAGNOSIS: Right displaced intertrochanteric hip fracture. PROCEDURE: Right hip closed reduction and intramedullary nail fixation using short TFN Synthes nail. SURGEON: Umberto Steven MD DIRECTOR TRADE: . ANESTHESIA: General. ESTIMATED BLOOD LOSS: 100 mL. COMPLICATIONS: None. DISPOSITION: Stable to recovery room. INDICATIONS: This is a 77-year-old female, who sustained a slip and fall at home, and presents to the Emergency Room of [facility]. The patient was seen yesterday on 04/04/2018. Initial x-rays confirmed displaced intertrochanteric hip fracture. She is indicated for the above surgery. Risks and benefits were explained to the patient. DESCRIPTION OF PROCEDURE: The patient was brought to the operating room and placed supine on the operating room table after general anesthesia was given and prophylactic antibiotics. The right lower extremity was placed into traction. Closed reduction was then performed with traction adduction and internal rotation. Fluoroscopic images confirmed anatomic reduction of the intertrochanteric fracture. The right lower extremity was then prepped and draped in standard surgical fashion. A time-out was performed. A longitudinal incision proximal to the greater trochanteric area was outlined. Incision was made to the skin only. All superficial veins were cauterized. Dissection was carried down identifying the starting point of the greater trochanteric area. Under fluoroscopic images, a guidewire was placed to the tip of the greater trochanter and advanced into the medullary canal. After appropriate placement of the guidewire, the opening reamer was inserted and opened the medullary canal of the proximal femur. Next, a short TFN nail was assembled with aiming guide. The nail was then placed into the intramedullary canal and seated in appropriate length. The guidewire for the Helical blade was then assembled and placed into the aiming guide. Incision was made over the tip of the guidewire and dissection was carried down to the lateral cortex of the femur. The trocar was then advanced into the lateral cortex and guidewire was placed into the femoral neck. The fluoroscopic images confirmed good placement of the guidewire in appropriate position in both AP and lateral x-rays. An appropriate sized Helical blade was then selected and a 95-mm reamer was used to open the medullary canal on the femoral neck. Next, the Helical blade was assembled and advanced with a light hammer blow through the guidewire into the femoral neck. This seated in appropriate position. The Helical blade was then locked to the nail with proximal screw. Next, work was begun on placing distal locking screw. Trocar was placed into the aiming guide and advanced to the lateral femur. A skin incision was made to advance to the lateral cortex of the femur. The trocar was advanced. An appropriate size drill guide was used for bicortical drilling of the femur. Appropriate size nail was then selected and placed into the distal locking hole of the nail, locking the nail to the femur. The aiming guide was then removed. Final measure confirmed well aligned and good placement of the short TFN nail with anatomic reduction of the intertrochanteric fracture. The wounds were then copiously irrigated, deep layers were closed with 0 Vicryl followed by 2-0 Vicryl followed by 3-0 Monocryl for subcuticular layer. Modifier 22 was used for this procedure due to the patient's severe obesity, which increased the complication and operative time by 50% for this patient. Umberto Steven MD
[2018-04-06 07:52] LABS: BASO % 0.1 % (0.0-2.0); HEMOGLOBIN 10.8 g/dL (11.0-16.0); LYMPH # 2.1 K/uL (1.0-4.3); LYMPH % 22.7 % (20.0-40.0); MEAN CELL VOLUME 79.5 fL (81.0-99.0); MEAN CORPUSCULAR HEMOGLOBIN 25.6 pg (27.0-31.0); MEAN CORPUSCULAR HGB CONC 32.3 g/dL (33.0-37.0); MEAN PLATELET VOLUME 8.7 fL (7.2-11.7); MONO # 1.1 K/uL (0.0-0.8); MONO % 11.7 % (0.0-10.0); NEUT # 6.1 K/uL (1.8-7.0); NEUT % 65.5 % (50.0-75.0); RBC 4.21 Mil/uL (3.80-5.20); RED CELL DISTRIBUTION WIDTH 15.5 % (11.5-14.5)
[2018-04-06 07:53] LABS: WHITE BLOOD COUNT 9.3 K/uL (4.8-10.8)
[2018-04-06 07:59] LABS: BLOOD UREA NITROGEN 17 mg/dL (7-17); CALCIUM 8.8 mg/dl (8.6-10.4); GFR NON-AFRICAN AMERICAN 54
--- NOTE | 2018-04-06 08:29 | CP.PCM.PN ---
<Gennaro Alanis - Last Filed: 04/06/18 13:21> Subjective - Date & Time of Evaluation Date of Evaluation: 04/06/18 Time of Evaluation: 08:24 - Subjective Subjective: PGY-1 Medicine Progress Note for Dr. Hendrix's service Patient seen and examined at bedside this AM s/p R hip closed reduction w/ IM nail fixation. No acute events reported overnight. Patient continues to endorse tenderness, pain under control. Denies fevers/chills, chest pain, palpitations, sob, n/v/d/c. No other acute somatic complaints at this time. Objective - Vital Signs/Intake and Output Vital Signs (last 24 hours): Temp Pulse Resp BP Pulse Ox 98 F 78 20 118/69 94 L 04/06/18 07:00 04/06/18 07:00 04/06/18 07:00 04/06/18 07:00 04/06/18 07:00 Intake and Output: 04/06/18 04/06/18 06:59 18:59 Intake Total 400 Output Total 400 Balance 0 - Medications Medications: Current Medications Hydromorphone HCl (Dilaudid) 0.5 mg IVP Q10M PRN PRN Reason: Pain, moderate (4-7) Last Admin: 04/05/18 12:22 Dose: 0.5 mg Cefazolin Sodium/Dextrose (Ancef Iv 2 Gm Duplex) 2 gm in 50 mls @ 100 mls/hr IVPB ONCE JULIO; Protocol Ketorolac Tromethamine (Toradol) 30 mg IVP Q6 PRN PRN Reason: Pain, severe (8-10) Morphine Sulfate (Morphine) 2 mg IVP Q4 PRN PRN Reason: Pain, moderate (4-7) Last Admin: 04/05/18 14:16 Dose: 2 mg Pantoprazole Sodium (Protonix Ec Tab) 40 mg PO DAILY JULIO Last Admin: 04/05/18 09:04 Dose: Not Given - Labs Labs: 04/06/18 07:30 04/06/18 07:30 PT 13.1 SECONDS (9.7-12.2) H 04/04/18 15:43 INR 1.2 04/04/18 15:43 APTT 32 SECONDS (21-34) 04/04/18 15:43 - Constitutional Appears: Non-toxic, No Acute Distress - Head Exam Head Exam: ATRAUMATIC, NORMAL INSPECTION, NORMOCEPHALIC - Eye Exam Eye Exam: EOMI, Normal appearance, PERRL Pupil Exam: NORMAL ACCOMODATION - ENT Exam ENT Exam: Mucous Membranes Moist, Normal Exam - Neck Exam Neck Exam: Full ROM, Normal Inspection - Respiratory Exam Respiratory Exam: Clear to Ausculation Bilateral, NORMAL BREATHING PATTERN. absent: Accessory Muscle Use, Rales, Rhonchi, Wheezes, Respiratory Distress, Stridor - Cardiovascular Exam Cardiovascular Exam: REGULAR RHYTHM, +S1, +S2 - GI/Abdominal Exam GI & Abdominal Exam: Soft, Normal Bowel Sounds. absent: Distended, Firm, Guarding, Rigid, Tenderness, Organomegaly - Extremities Exam Extremities Exam: Normal Capillary Refill. absent: Calf Tenderness, Pedal Edema - Neurological Exam Neurological Exam: Alert, Awake, Oriented x3 - Psychiatric Exam Psychiatric exam: Normal Affect, Normal Mood - Skin Skin Exam: Dry, Intact, Normal Color, Warm Assessment and Plan - Assessment and Plan (Free Text) Plan: R hip fracture 2/2 mechanical fall s/p R hip closed reduction with IM nail fixation -CXR (04/04): L basilar linear scar/atelectasis; otherwise, no acute findings -XR femur (04/04): comminuted mildly displaced intertrochanteric fracture of R hip -XR hip/pelvis (04/04): comminuted mildly displaced intertrochanteric fracture of R hip -R knee XR (04/04): no acute findings -Orthopedic Surgery (Dr. Steven) on board -R hip closed reduction w/ IM nail fixation performed (04/05) -cefazolin 2gm -Morphine 2mg IVP q4 prn -Toradol 30 mg IV q6 prn -Dilaudid 0.5 mg IVP q10m prn, max 4 doses PPx, Diet, Disposition -DVT ppx: scds, lovenox 40 -GI ppx: protonix 40 mg -Diet: HHD -PT/OT on board Case discussed with Dr. Ruma Alanis DO, PGY-1 <Adam Hendrix - Last Filed: 04/06/18 14:12> Objective - Vital Signs/Intake and Output Vital Signs (last 24 hours): Temp Pulse Resp BP Pulse Ox 98 F 78 20 118/69 94 L 12/24/18 07:00 04/06/18 07:00 04/06/18 07:00 04/06/18 07:00 04/06/18 07:00 Intake and Output: 04/06/18 04/06/18 06:59 18:59 Intake Total 400 Output Total 400 Balance 0 - Medications Medications: Current Medications Enoxaparin Sodium (Lovenox) 40 mg SC Q24H JULIO Last Admin: 04/06/18 12:15 Dose: 40 mg Hydromorphone HCl (Dilaudid) 0.5 mg IVP Q10M PRN PRN Reason: Pain, moderate (4-7) Last Admin: 04/05/18 12:22 Dose: 0.5 mg Cefazolin Sodium 2 gm/ Sodium (Chloride) 100 mls @ 100 mls/hr IVPB ONCE JULIO; Protocol Last Admin: 04/06/18 10:15 Dose: 100 mls/hr Ketorolac Tromethamine (Toradol) 30 mg IVP Q6 PRN PRN Reason: Pain, severe (8-10) Last Admin: 04/06/18 10:20 Dose: 30 mg Morphine Sulfate (Morphine) 2 mg IVP Q4 PRN PRN Reason: Pain, moderate (4-7) Last Admin: 04/06/18 14:07 Dose: 2 mg Ondansetron HCl (Zofran Tab) 4 mg PO Q4H PRN PRN Reason: Nausea/Vomiting Pantoprazole Sodium (Protonix Ec Tab) 40 mg PO DAILY JULIO Last Admin: 04/06/18 10:15 Dose: 40 mg - Labs Labs: 04/06/18 07:30 04/06/18 07:30 PT 13.1 SECONDS (9.7-12.2) H 04/04/18 15:43 INR 1.2 04/04/18 15:43 APTT 32 SECONDS (21-34) 04/04/18 15:43 Attending/Attestation - Attestation I have personally seen and examined this patient.: Yes I have fully participated in the care of the patient.: Yes I have reviewed all pertinent clinical information, including history, physical exam and plan: Yes Notes (Text): 04/06/18 14:09 Medical attending: Patient was seem amd examined by me, she is S/P R hip surgery. Encouraged incentive spirometry We made adjustments to pain medications. She has warm feet, palpable pulses in thew lower extremtiy There was no active bleeding - patient is back on lovenox for DVT prophylaxis Encouraged PT and rehab Adam Hendrix
[2018-04-06] MEDS ORDERED: ceFAZolin 2 GM in Sodium Chloride 0.9% 100 ML IVPB SCH (09:30)
[2018-04-06] MEDS ORDERED: Enoxaparin 40 mg Syringe SC SCH (10:00)
[2018-04-06] MEDS: Pantoprazole 40 mg EC Tab PO SCH (10:15)
--- NOTE | 2018-04-06 11:31 | RAD ---
Date of service: 04/05/2018 PROCEDURE: Intraoperative Fluoroscopy. HISTORY: RIGHT HIP FX FINDINGS: Fluoroscopic assistance was provided for right hip replacement. Please refer to the operative report from [facility]. Total fluoroscopic time (continuous mode) utilized during the procedure 110.3 seconds. Total exam DLP: 39.80 (mGy).
[2018-04-06] MEDS: Enoxaparin 40 mg Syringe SC SCH (12:15)
--- NOTE | 2018-04-06 12:17 | CP.PCM.PN ---
Subjective - Date & Time of Evaluation Date of Evaluation: 04/06/18 Time of Evaluation: 12:15 - Subjective Subjective: Patient states she has a lot of pain in her right hip. She says she was able to get up with PT today. Denies CP/SOB/dizziness Objective - Vital Signs/Intake and Output Vital Signs (last 24 hours): Temp Pulse Resp BP Pulse Ox 98 F 78 20 118/69 94 L 04/06/18 07:00 04/06/18 07:00 04/06/18 07:00 04/06/18 07:00 04/06/18 07:00 Intake and Output: 04/06/18 04/06/18 06:59 18:59 Intake Total 400 Output Total 400 Balance 0 - Medications Medications: Current Medications Enoxaparin Sodium (Lovenox) 40 mg SC Q24H [facility] Hydromorphone HCl (Dilaudid) 0.5 mg IVP Q10M PRN PRN Reason: Pain, moderate (4-7) Last Admin: 04/05/18 12:22 Dose: 0.5 mg Cefazolin Sodium 2 gm/ Sodium (Chloride) 100 mls @ 100 mls/hr IVPB ONCE JULIO; Protocol Last Admin: 04/06/18 10:15 Dose: 100 mls/hr Ketorolac Tromethamine (Toradol) 30 mg IVP Q6 PRN PRN Reason: Pain, severe (8-10) Last Admin: 04/06/18 10:20 Dose: 30 mg Morphine Sulfate (Morphine) 2 mg IVP Q4 PRN PRN Reason: Pain, moderate (4-7) Last Admin: 04/05/18 14:16 Dose: 2 mg Ondansetron HCl (Zofran Tab) 4 mg PO Q4H PRN PRN Reason: Nausea/Vomiting Pantoprazole Sodium (Protonix Ec Tab) 40 mg PO DAILY [facility] Last Admin: 04/06/18 10:15 Dose: 40 mg - Labs Labs: 04/06/18 07:30 04/06/18 07:30 PT 13.1 SECONDS (9.7-12.2) H 04/04/18 15:43 INR 1.2 04/04/18 15:43 APTT 32 SECONDS (21-34) 04/04/18 15:43 - Extremities Exam Additional comments: RLE: +ROM ankle/toes, sensation intact, calves soft NT neg homans +DP/PT pulses, dressing intact, small amount sang drainage Assessment and Plan (1) Closed intertrochanteric fracture of right femur Assessment & Plan: POD#1 s/p ORIF PT/OT d/c pollock monitor h/h VTE proph, to start lovenox today approx 24 hrs post op orthopedically stable dressing to be changed 04/08 f/u 7-[address] Steven in office d/w Dr. Steven, agrees with above Status: Acute (2) Acute blood loss anemia Assessment & Plan: VSS Status: Acute
--- NOTE | 2018-04-06 20:50 | CARD ---
APPROVED REPORT Date of service: 04/04/2018 EKG Measurement Heart [id number] <Conclusion> Normal sinus rhythm Low voltage QRS Borderline ECG
--- NOTE | 2018-04-07 00:30 | CP.PCM.PN ---
<Loree Chaidez - Last Filed: 04/07/18 00:27> Subjective - Date & Time of Evaluation Date of Evaluation: 04/07/18 Time of Evaluation: 00:27 - Subjective Subjective: Progress Note Patient seen and examined at bedside. She was sleeping comfortably. She states she has mild amount of pain in her right hip worsened with movement. She states she has not had a bowel movement in about 3 days, but also states she has not be en eating a lot of food. Patient denies fevers, chills, headache, dizziness, chest pain, shortness of breath, abdominal pain, nausea, vomiting, diarrhea. Objective - Vital Signs/Intake and Output Vital Signs (last 24 hours): Temp Pulse Resp BP Pulse Ox 97.8 F 68 18 107/68 98 04/06/18 15:30 04/06/18 15:30 04/06/18 15:30 04/06/18 15:30 04/06/18 20:11 Intake and Output: 04/06/18 04/07/18 18:59 06:59 Output Total 250 450 Balance -250 -450 - Medications Medications: Current Medications Enoxaparin Sodium (Lovenox) 40 mg SC Q24H JUL[facility] Last Admin: 04/06/18 12:15 Dose: 40 mg Hydromorphone HCl (Dilaudid) 0.5 mg IVP Q10M PRN PRN Reason: Pain, moderate (4-7) Last Admin: 04/05/18 12:22 Dose: 0.5 mg Cefazolin Sodium 2 gm/ Sodium (Chloride) 100 mls @ 100 mls/hr IVPB ONCE JULIO; Protocol Last Admin: 04/06/18 10:15 Dose: 100 mls/hr Ketorolac Tromethamine (Toradol) 30 mg IVP Q6 PRN PRN Reason: Pain, severe (8-10) Last Admin: 04/06/18 10:20 Dose: 30 mg Morphine Sulfate (Morphine) 2 mg IVP Q4 PRN PRN Reason: Pain, moderate (4-7) Last Admin: 04/06/18 14:07 Dose: 2 mg Ondansetron HCl (Zofran Tab) 4 mg PO Q4H PRN PRN Reason: Nausea/Vomiting Pantoprazole Sodium (Protonix Ec Tab) 40 mg PO DAILY [facility]UL[facility] Last Admin: 04/06/18 10:15 Dose: 40 mg - Labs Labs: 04/06/18 07:30 04/06/18 07:30 PT 13.1 SECONDS (9.7-12.2) H 04/04/18 15:43 INR 1.2 04/04/18 15:43 APTT 32 SECONDS (21-34) 04/04/18 15:43 - Constitutional Appears: Non-toxic, No Acute Distress - Head Exam Head Exam: ATRAUMATIC, NORMOCEPHALIC - Eye Exam Eye Exam: EOMI, PERRL. absent: Conjunctival injection - ENT Exam ENT Exam: Mucous Membranes Moist - Neck Exam Neck Exam: Full ROM - Respiratory Exam Respiratory Exam: Clear to Ausculation Bilateral, NORMAL BREATHING PATTERN. absent: Rales, Rhonchi, Wheezes, Respiratory Distress, Stridor - Cardiovascular Exam Cardiovascular Exam: REGULAR RHYTHM, +S1, +S2. absent: Gallop, Rubs, Murmur - GI/Abdominal Exam GI & Abdominal Exam: Soft, Normal Bowel Sounds. absent: Distended, Firm, Guarding, Rigid, Tenderness, Organomegaly - Extremities Exam Extremities Exam: Normal Capillary Refill. absent: Calf Tenderness, Pedal Edema Additional comments: RLE: able to move toes. DP pulses intact. no pedal edema. no calf tenderness. LLE: no calf tenderness, no pedal edema. DP pulses present. - Neurological Exam Neurological Exam: Alert, Awake, Oriented x3 - Psychiatric Exam Psychiatric exam: Normal Affect, Normal Mood - Skin Skin Exam: Dry, Intact, Warm Assessment and Plan - Assessment and Plan (Free Text) Plan: R hip fracture secondary to mechanical fall s/p R hip closed reduction with IM nail fixation (POD2) -CXR (04/04): L basilar linear scar/atelectasis; otherwise, no acute findings -XR femur (04/04): comminuted mildly displaced intertrochanteric fracture of R hip -XR hip/pelvis (04/04): comminuted mildly displaced intertrochanteric fracture of R hip -R knee XR (04/04): no acute findings -Orthopedic Surgery (Dr. Steven) on board -R hip closed reduction w/ IM nail fixation performed (04/05) -cefazolin 2gm -Morphine 2mg IVP q4 prn -Toradol 30 mg IV q6 prn -Dilaudid 0.5 mg IVP q10m prn, max 4 doses (only received 1 dose so far) - Zofran 4mg PO PRN Constipation Likely secondary to pain regimen - Miralax x1 to be given - Continue to monitor BMs. PPx -DVT ppx: scds, lovenox 40 -GI ppx: protonix 40 mg -Diet: HHD -PT/OT on board Case discussed with Dr. Ruma Chaidez, PGY1 <Adam Hendrix H - Last Filed: 04/07/18 09:57> Objective - Vital Signs/Intake and Output Vital Signs (last 24 hours): Temp Pulse Resp BP Pulse Ox 97.9 F 82 20 137/57 L 97 04/07/18 08:37 04/07/18 08:37 04/07/18 08:37 04/07/18 08:37 04/07/18 08:37 Intake and Output: 04/07/18 04/07/18 06:59 18:59 Output Total 750 Balance -750 - Medications Medications: Current Medications Enoxaparin Sodium (Lovenox) 40 mg SC Q24H [facility] Last Admin: 04/06/18 12:15 Dose: 40 mg Hydromorphone HCl (Dilaudid) 0.5 mg IVP Q10M PRN PRN Reason: Pain, moderate (4-7) Last Admin: 04/05/18 12:22 Dose: 0.5 mg Ketorolac Tromethamine (Toradol) 30 mg IVP Q6 PRN PRN Reason: Pain, severe (8-10) Last Admin: 04/07/18 08:38 Dose: 30 mg Morphine Sulfate (Morphine) 2 mg IVP Q4 PRN PRN Reason: Pain, moderate (4-7) Last Admin: 04/07/18 04:13 Dose: 2 mg Ondansetron HCl (Zofran Tab) 4 mg PO Q4H PRN PRN Reason: Nausea/Vomiting Pantoprazole Sodium (Protonix Ec Tab) 40 mg PO DAILY [facility] Last Admin: 04/06/18 10:15 Dose: 40 mg - Labs Labs: 04/07/18 07:51 04/07/18 07:51 PT 13.1 SECONDS (9.7-12.2) H 04/04/18 15:43 INR 1.2 04/04/18 15:43 APTT 32 SECONDS (21-34) 04/04/18 15:43 Attending/Attestation - Attestation I have personally seen and examined this patient.: Yes I have fully participated in the care of the patient.: Yes I have reviewed all pertinent clinical information, including history, physical exam and plan: Yes Notes (Text): 04/07/18 09:54 Medical attending: Patient was seen and examined by me. Agree with the above note by the resident The patient was not in any acute distress when I came and saw She reported there is pain - however she does not want more pain medication when I asked her. Reviewed lab work, the Hgb is stable Also she needs to have the incentive spirometer. I asked for this yesterday but it is not at bedside - will ask again Adam Hendrix
[2018-04-07] MEDS ORDERED: POLYETHYLENE GLYCOL 3350 17 GM/Dose PACKET PO ONE (07:00)
[2018-04-07 08:01] LABS: BASO # 0.1 K/uL (0.0-0.2); BASO % 0.8 % (0.0-2.0); EOS # 0.1 K/uL (0.0-0.7); EOS % 1.4 % (0.0-4.0); HEMOGLOBIN 11.4 g/dL (11.0-16.0); LYMPH # 2.9 K/uL (1.0-4.3); LYMPH % 30.9 % (20.0-40.0); MEAN CELL VOLUME 80.7 fL (81.0-99.0); MEAN CORPUSCULAR HEMOGLOBIN 25.4 pg (27.0-31.0); MEAN CORPUSCULAR HGB CONC 31.5 g/dL (33.0-37.0); MEAN PLATELET VOLUME 8.9 fL (7.2-11.7); MONO # 1.3 K/uL (0.0-0.8); MONO % 14.2 % (0.0-10.0); NEUT % 52.7 % (50.0-75.0); RBC 4.49 Mil/uL (3.80-5.20); WHITE BLOOD COUNT 9.4 K/uL (4.8-10.8)
[2018-04-07 08:17] LABS: BLOOD UREA NITROGEN 22 mg/dL (7-17); CALCIUM 8.9 mg/dl (8.6-10.4); GFR NON-AFRICAN AMERICAN > 60
[2018-04-07] MEDS: Pantoprazole 40 mg EC Tab PO SCH ×2 (11:01→13:04)
[2018-04-07] MEDS: Enoxaparin 40 mg Syringe SC SCH (13:04)
--- NOTE | 2018-04-08 09:13 | CP.PCM.PN ---
Subjective - Date & Time of Evaluation Date of Evaluation: 04/08/18 Time of Evaluation: 09:11 - Subjective Subjective: Patient still complaining of a lot of pain in her leg. Denies CP/SOB/dizziness/numbness/tingling. Objective - Vital Signs/Intake and Output Vital Signs (last 24 hours): Temp Pulse Resp BP Pulse Ox 99.1 F 88 20 145/78 98 04/08/18 07:00 04/08/18 07:00 04/08/18 07:00 04/08/18 07:00 04/08/18 07:00 Intake and Output: 04/08/18 04/08/18 06:59 18:59 Intake Total 420 Output Total 1250 Balance -830 - Medications Medications: Current Medications Enoxaparin Sodium (Lovenox) 40 mg SC Q24H [facility] Last Admin: 04/07/18 13:04 Dose: 40 mg Morphine Sulfate (Morphine) 2 mg IVP Q4 PRN PRN Reason: Pain, moderate (4-7) Last Admin: 04/08/18 00:02 Dose: 2 mg Ondansetron HCl (Zofran Tab) 4 mg PO Q4H PRN PRN Reason: Nausea/Vomiting Pantoprazole Sodium (Protonix Ec Tab) 40 mg PO DAILY [facility] Last Admin: 04/07/18 13:04 Dose: 40 mg - Labs Labs: 04/07/18 07:51 04/07/18 07:51 PT 13.1 SECONDS (9.7-12.2) H 04/04/18 15:43 INR 1.2 04/04/18 15:43 APTT 32 SECONDS (21-34) 04/04/18 15:43 - Extremities Exam Additional comments: right hip: dressing changed. Incisions intact, small amount sang drainage. No erythema. Thigh soft, tender. +ROM ankle/toes, sensation intact, +DP/PT pulses calves soft NT neg homans Assessment and Plan (1) Closed intertrochanteric fracture of right femur Assessment & Plan: POD# 3 s/p right hip ORIF ortho stable for d/c to rehab cont VTE proph lovenox/SCDs PT/oT f/u 7-[address] Steven upon d/c d/w Dr. Steven, agrees with above Status: Acute (2) Acute blood loss anemia Assessment & Plan: stable Status: Acute
[2018-04-08] MEDS: Pantoprazole 40 mg EC Tab PO SCH (09:46)
[2018-04-08] MEDS: Enoxaparin 40 mg Syringe SC SCH (11:59)
[2018-04-08] MEDS ORDERED: POLYETHYLENE GLYCOL 3350 17 GM/Dose PACKET PO ONE (14:15)
--- NOTE | 2018-04-08 14:23 | CP.PCM.DIS ---
<Daneil Betancur - Last Filed: 04/08/18 14:51> Provider - Provider Date of Admission: 04/04/18 16:52 Attending physician: Josemanuel Field MD Consults: 04/04/18 18:18 Orthopedic Consult Routine Comment: Consulting Provider: Umberto Steven Consulting Physician: Umberto Steven Reason for Consult: R comminuted displaced intertrochanteric hip fx 04/06/18 08:10 Case Management Referral Routine Comment: Physician Instructions: Reason For Exam: s/p R hip fracture, closed reduction surgery Reason for Referral: Discharge Planning Time Spent in preparation of Discharge (in minutes): 35 Hospital Course - Lab Results Lab Results: Most Recent Lab Values WBC 9.4 K/uL (4.8-10.8) 04/07/18 07:51 RBC 4.49 Mil/uL (3.80-5.20) 04/07/18 07:51 Hgb 11.4 g/dL (11.0-16.0) 04/07/18 07:51 Hct 36.2 % (34.0-47.0) 04/07/18 07:51 MCV 80.7 fL (81.0-99.0) L 04/07/18 07:51 MCH 25.4 pg (27.0-31.0) L 04/07/18 07:51 MCHC 31.5 g/dL (33.0-37.0) L 04/07/18 07:51 RDW 15.0 % (11.5-14.5) H 04/07/18 07:51 Plt Count 171 K/uL (130-400) 04/07/18 07:51 MPV 8.9 fL (7.2-11.7) 04/07/18 07:51 Neut % (Auto) 52.7 % (50.0-75.0) 04/07/18 07:51 Lymph % (Auto) 30.9 % (20.0-40.0) 04/07/18 07:51 Martin % (Auto) 14.2 % (0.0-10.0) H 04/07/18 07:51 Eos % (Auto) 1.4 % (0.0-4.0) 04/07/18 07:51 Baso % (Auto) 0.8 % (0.0-2.0) 04/07/18 07:51 Neut # (Auto) 5.0 K/uL (1.8-7.0) 04/07/18 07:51 Lymph # (Auto) 2.9 K/uL (1.0-4.3) 04/07/18 07:51 Martin # (Auto) 1.3 K/uL (0.0-0.8) H 04/07/18 07:51 Eos # (Auto) 0.1 K/uL (0.0-0.7) 04/07/18 07:51 Baso # (Auto) 0.1 K/uL (0.0-0.2) 04/07/18 07:51 PT 13.1 SECONDS (9.7-12.2) H 04/04/18 15:43 INR 1.2 04/04/18 15:43 APTT 32 SECONDS (21-34) 04/04/18 15:43 Sodium 137 mmol/L (132-148) 04/07/18 07:51 Potassium 5.2 mmol/L (3.6-5.2) 04/07/18 07:51 Chloride 103 mmol/L (98-107) 04/07/18 07:51 Carbon Dioxide 27 mmol/L (22-30) 04/07/18 07:51 Anion Gap 12 (10-20) 04/07/18 07:51 BUN 22 mg/dL (7-17) H 04/07/18 07:51 Creatinine 0.9 mg/dL (0.7-1.2) 04/07/18 07:51 Est GFR ( Amer) > 60 04/07/18 07:51 Est GFR (Non-Af Amer) > 60 04/07/18 07:51 Random Glucose 106 mg/dL (65-105) H 04/07/18 07:51 Calcium 8.9 mg/dl (8.6-10.4) 04/07/18 07:51 Phosphorus 3.0 mg/dL (2.5-4.5) 04/05/18 08:09 Magnesium 1.9 mg/dL (1.6-2.3) 04/05/18 08:09 Total Bilirubin 0.6 mg/dL (0.2-1.3) 04/05/18 08:09 AST 77 U/L (14-36) H D 04/05/18 08:09 ALT 55 U/L (9-52) H D 04/05/18 08:09 Alkaline Phosphatase 100 U/L (38-126) 04/05/18 08:09 Total Protein 6.9 g/dL (6.3-8.3) 04/05/18 08:09 Albumin 3.2 g/dL (3.5-5.0) L D 04/05/18 08:09 Globulin 3.7 gm/dL (2.2-3.9) 04/05/18 08:09 Albumin/Globulin Ratio 0.9 (1.0-2.1) L 04/05/18 08:09 Blood Type B POSITIVE 04/04/18 15:43 Antibody Screen Negative 04/04/18 15:43 - Hospital Course Hospital Course: As per admission documentation Patient is a 77 year old [place] female with past medical history of spinal stenosis, arthritis, diverticulosis presenting with R hip fracture s/p mechanical fall earlier today. Per patient, she was getting out of her car and walking towards the garage when she slipped and fell on her R side. She denies any LOC or head trauma. She endorses R hip and thigh pain, rated 10/10 in severity, with no radiation of pain. She denies any numbness or tingling sensation to her extremities, no saddle anesthesia, no urinary incontinence. No other acute somatic complaints at this time. No fevers/chills, headaches, dizziness, chest pain, palpitations, sob, cough, abdominal pain, +mild nausea s/p morphine, no vomiting/diarrhea/constipation. Hospital course Patient presented to the emergency room on 04/04/18 after she slipped walking. She was found to have an right hip intertroach fracture. Orthopaedics, Dr. Steven, was consulted. Dr. Steven performed surgery on 04/05/18 - IM nail fixation. Patient was stable throughout the rest of her hospitalization. Patient's pain was treated with morphine in her post-op phase. She was cleared by ortho and was discharged to [facility] on 04/08/18. Patient was discharged with the following instructions. Discharge instructions Patient is to be discharged to [facility] for continued PT/OT per Dr. Hendrix. Patient is to follow up with Dr. Reeves (Ortho) in 7-10 days upon discharge. Please call and schedule an appointment. Patient is to follow up with her primary care physician, Dr. Huff, in 7 days upon discharge. Please call and schedule an appointment. Patient is to continue taking her medications as directed. Discharge Exam - Head Exam Head Exam: ATRAUMATIC, NORMOCEPHALIC - Eye Exam Eye Exam: EOMI, Normal appearance - ENT Exam ENT Exam: Mucous Membranes Moist - Respiratory Exam Respiratory Exam: Clear to PA & Lateral, NORMAL BREATHING PATTERN, UNREMARKABLE. absent: Accessory Muscle Use, Rhonchi, Wheezes, Respiratory Distress - Cardiovascular Exam Cardiovascular Exam: REGULAR RHYTHM, +S1, +S2 - GI/Abdominal Exam GI & Abdominal Exam: Normal Bowel Sounds, Soft. absent: Distended, Firm, Guarding, Rigid, Tenderness - Extremities Exam Additional comments: SCDS in place, no edema, no erythema and pedal pulses intact b/l Right hip dressing clean dry and intact - changed earlier today. - Neurological Exam Neurological exam: Alert, CN II-XII Intact, Oriented x3 - Psychiatric Exam Psychiatric exam: Normal Affect, Normal Mood - Skin Skin Exam: Dry, Normal Color, Warm Discharge Plan - Follow Up Plan Condition: GOOD Disposition: HOME/ ROUTINE Instructions: Femur Fracture (DC), Preventing Falls Additional Instructions: Patient is to be discharged to [facility] for continued PT/OT per Dr. Hendrix. Patient is to follow up with Dr. Reeves (Ortho) in 7-10 days upon discharge. Please call and schedule an appointment. Patient is to follow up with her primary care physician, Dr. Huff, in 7 days upon discharge. Please call and schedule an appointment. Patient is to continue taking her medications as directed. Please continue SCDs, along with Lovenox for VTE prophylaxis. Referrals: Umberto Steven MD [Staff Provider] - <Adam Hendrix H - Last Filed: 04/08/18 15:20> Provider - Provider Date of Admission: 04/04/18 16:52 Attending physician: Josemanuel Field MD Consults: 04/04/18 18:18 Orthopedic Consult Routine Comment: Consulting Provider: Umberto Steven Consulting Physician: Umberto Steven Reason for Consult: R comminuted displaced intertrochanteric hip fx 04/06/18 08:10 Case Management Referral Routine Comment: Physician Instructions: Reason For Exam: s/p R hip fracture, closed reduction surgery Reason for Referral: Discharge Planning Hospital Course - Lab Results Lab Results: Most Recent Lab Values WBC 9.4 K/uL (4.8-10.8) 04/07/18 07:51 RBC 4.49 Mil/uL (3.80-5.20) 04/07/18 07:51 Hgb 11.4 g/dL (11.0-16.0) 04/07/18 07:51 Hct 36.2 % (34.0-47.0) 04/07/18 07:51 MCV 80.7 fL (81.0-99.0) L 04/07/18 07:51 MCH 25.4 pg (27.0-31.0) L 04/07/18 07:51 MCHC 31.5 g/dL (33.0-37.0) L 04/07/18 07:51 RDW 15.0 % (11.5-14.5) H 04/07/18 07:51 Plt Count 171 K/uL (130-400) 04/07/18 07:51 MPV 8.9 fL (7.2-11.7) 04/07/18 07:51 Neut % (Auto) 52.7 % (50.0-75.0) 04/07/18 07:51 Lymph % (Auto) 30.9 % (20.0-40.0) 04/07/18 07:51 Martin % (Auto) 14.2 % (0.0-10.0) H 04/07/18 07:51 Eos % (Auto) 1.4 % (0.0-4.0) 04/07/18 07:51 Baso % (Auto) 0.8 % (0.0-2.0) 04/07/18 07:51 Neut # (Auto) 5.0 K/uL (1.8-7.0) 04/07/18 07:51 Lymph # (Auto) 2.9 K/uL (1.0-4.3) 04/07/18 07:51 Martin # (Auto) 1.3 K/uL (0.0-0.8) H 04/07/18 07:51 Eos # (Auto) 0.1 K/uL (0.0-0.7) 04/07/18 07:51 Baso # (Auto) 0.1 K/uL (0.0-0.2) 04/07/18 07:51 PT 13.1 SECONDS (9.7-12.2) H 04/04/18 15:43 INR 1.2 04/04/18 15:43 APTT 32 SECONDS (21-34) 04/04/18 15:43 Sodium 137 mmol/L (132-148) 04/07/18 07:51 Potassium 5.2 mmol/L (3.6-5.2) 04/07/18 07:51 Chloride 103 mmol/L (98-107) 04/07/18 07:51 Carbon Dioxide 27 mmol/L (22-30) 04/07/18 07:51 Anion Gap 12 (10-20) 04/07/18 07:51 BUN 22 mg/dL (7-17) H 04/07/18 07:51 Creatinine 0.9 mg/dL (0.7-1.2) 04/07/18 07:51 Est GFR ( Amer) > 60 04/07/18 07:51 Est GFR (Non-Af Amer) > 60 04/07/18 07:51 Random Glucose 106 mg/dL (65-105) H 04/07/18 07:51 Calcium 8.9 mg/dl (8.6-10.4) 04/07/18 07:51 Phosphorus 3.0 mg/dL (2.5-4.5) 04/05/18 08:09 Magnesium 1.9 mg/dL (1.6-2.3) 04/05/18 08:09 Total Bilirubin 0.6 mg/dL (0.2-1.3) 04/05/18 08:09 AST 77 U/L (14-36) H D 04/05/18 08:09 ALT 55 U/L (9-52) H D 04/05/18 08:09 Alkaline Phosphatase 100 U/L (38-126) 04/05/18 08:09 Total Protein 6.9 g/dL (6.3-8.3) 04/05/18 08:09 Albumin 3.2 g/dL (3.5-5.0) L D 04/05/18 08:09 Globulin 3.7 gm/dL (2.2-3.9) 04/05/18 08:09 Albumin/Globulin Ratio 0.9 (1.0-2.1) L 04/05/18 08:09 Blood Type B POSITIVE 04/04/18 15:43 Antibody Screen Negative 04/04/18 15:43 Attending/Attestation - Attestation I have personally seen and examined this patient.: Yes I have fully participated in the care of the patient.: Yes I have reviewed all pertinent clinical information, including history, physical exam and plan: Yes Notes (Text): 04/08/18 15:12 Medical attending: Patient was seen and examined by me. Agree with the above note by the resident The patient will be going for further rehab at [facility]. We emphasized to her the importance of trying to participate with PT while there. The patient will continue with the pain control as well. She needs to follow up with her primary physician as well as orthopedic surgery in the future. Adam Hendrix 04/08/18 15:20
[2018-04-08 16:39] VITALS: BP 114/66; PULSE 89; RESP 18; TEMP 98.3; O2SAT 99
== END 2018-04-08 17:28 | DRG 481 ==
LOC: C.ER 14:47 → C.9E 16:52 → C.6T 17:57
PROVIDERS: ADMIT Internal Medicine; ATTEND Internal Medicine
PROC: 0QS636Z Reposition Right Upper Femur with Intramedullary Internal Fixation Device, Percutaneous Approach (ICD-10-PCS; principal; 2018-04-05 10:00)
DX: S72.141A Displaced intertrochanteric fracture of right femur, initial encounter for closed fracture (principal); D62 Acute posthemorrhagic anemia; M79.651 Pain in right thigh; M48.00 Spinal stenosis, site unspecified; M19.90 Unspecified osteoarthritis, unspecified site; W01.0XXA Fall on same level from slipping, tripping and stumbling without subsequent striking against object, initial encounter; Y92.008 Other place in unspecified non-institutional (private) residence as the place of occurrence of the external cause; Z90.49 Acquired absence of other specified parts of digestive tract